=== PATIENT | female | born 2000 | race Caucasian/White ===

== ENCOUNTER 2018-06-16 22:15 | Emergency (ER) | payer BC ==
[~2018-06-16] VITALS: Ht 165.1 cm; Wt 59.0 kg
[2018-06-16 22:34] VITALS: BP_SYST 126
[2018-06-16 23:00] VITALS: BP_SYST 120
== END 2018-06-16 23:00 | disposition home or self-care (01) ==
LOC: SED 22:15
DX: N39.0 Urinary tract infection, site not specified (principal)
CPT/HCPCS: 81002; 81025; 99282